=== PATIENT | male | born 1970 | race Asian ===

== ENCOUNTER 2019-03-06 18:39 | Emergency (ER) | payer BC ==
[~2019-03-06] VITALS: Ht 180.3 cm; Wt 88.9 kg
[2019-03-07 02:16] VITALS: BP 120/79
== END 2019-03-07 02:16 | disposition short-term general hospital (02) ==
LOC: ED 18:39
DX: R33.9 Retention of urine, unspecified (principal)
CPT/HCPCS: J1885